=== PATIENT | male | born 1970 | race Caucasian/White ===

== ENCOUNTER 2020-02-19 15:58 | Inpatient (IN) ==
[2020-02-19] MEDS ORDERED: Cefepime HCl 2,000 MG in 0.9 % Sodium Chloride Mini Bag 100 ML IVPB ONE (16:51)
[2020-02-19] MEDS ORDERED: Vancomycin 2,000 MG/520 ML IV.SOLN IVPB ONE (16:52)
[2020-02-19] MEDS ORDERED: Isovue-370 500 ML BOTTLE IVP ONE ×2 (16:53→16:56)
[2020-02-19] MEDS ORDERED: MetroNIDAZOLE 500 MG/100 ML 500 MG/100 ML BAG IVPB ONE (16:53)
[2020-02-19] MEDS ORDERED: D5% in Water 0 ML ONE (17:05)
[2020-02-19 18:09] LABS: INR 1.3; Prothrombin Time 14.8 Seconds (9.4-12.1)
[2020-02-19 18:12] LABS: Activated Partial Thrombo Time 27.9 Seconds (26.0-36.0)
[2020-02-19 18:20] LABS: Basophils # 0.1 K/mcL (0.0-0.2); Basophils % 0.3 %; Eosinophils % 0.1 %; Hemoglobin 12.5 g/dL (12.9-16.9); Immature Granulocytes % 2.3 % (0-4); Lymphocytes # 1.4 K/mcL (0.6-4.6); Lymphocytes % 9.1 %; Mean Corpuscular HGB Conc 31.3 g/dL (31.6-35.5); Mean Corpuscular Hemoglobin 28.3 pg (28.0-33.3); Mean Corpuscular Volume 90.5 fL (83.0-100.0); Mean Platelet Volume 8.9 fL (9.4-12.4); Monocytes # 1.1 K/mcL (0.0-1.3); Monocytes % 6.7 %; Platelet Count 381 K/mcL (140-400); Red Blood Count 4.42 M/mcL (4.19-5.50); Red Cell Distribution Width 20.8 % (11.5-14.5); Segmented Neutrophils % 81.5 %; White Blood Count 15.9 K/mcL (4.3-11.1)
[2020-02-19 18:40] LABS: Alanine Aminotransferase 14 Units/L (7-52); Albumin 2.4 g/dL (3.5-5.7); Albumin/Globulin Ratio 0.5 (1.1-2.2); Alkaline Phosphatase 242 Units/L (34-104); Aspartate Amino Transferase 21 Units/L (13-39); BUN/Creatinine Ratio 26 (6-26); Bilirubin,Direct 0.2 mg/dL (0.0-0.2); Bilirubin,Indirect 0.4 mg/dL (0.0-1.0); Bilirubin,Total 0.6 mg/dL (0.3-1.0); Blood Urea Nitrogen 18 mg/dL (6-20); Calcium 7.8 mg/dL (8.6-10.3); Carbon Dioxide 26 mEq/L (23-29); Chloride 95 mEq/L (98-107); Globulin 4.5 g/dL (2.4-3.5); Glucose 112 mg/dL (70-105); Osmolality,Calculated 275 (280-300); Phosphorous 3.6 mg/dL (2.7-4.5); Potassium 3.4 mEq/L (3.5-5.1); Sodium 131 mEq/L (136-145); Total Protein 6.9 g/dL (6.4-8.9); Troponin I < 0.03 ng/mL (< 0.04); eGFR For African Americans > 60 (> 60); eGFR For Non-African Americans > 60 (> 60)
[2020-02-19] MEDS ORDERED: *HR* Heparin 5,000 UNIT/ML VIAL IVP ONE (20:03)
[2020-02-19] MEDS ORDERED: *HR* Heparin 5,000 UNIT/ML VIAL IVP PRN ×2 (20:03)
[2020-02-19] MEDS: Heparin 25,000UNIT/250ML 1/2NS 25,000 UNIT/250 ML IV.SOLN IVC SCH (21:39)
[2020-02-19 22:01] LABS: Hematocrit 34.1 % (37.5-50.1); Mean Corpuscular HGB Conc 31.7 g/dL (31.6-35.5); Mean Corpuscular Hemoglobin 28.3 pg (28.0-33.3); Mean Corpuscular Volume 89.5 fL (83.0-100.0); Mean Platelet Volume 8.5 fL (9.4-12.4); Platelet Count 335 K/mcL (140-400); Red Blood Count 3.81 M/mcL (4.19-5.50); Red Cell Distribution Width 20.7 % (11.5-14.5); White Blood Count 17.5 K/mcL (4.3-11.1)
[2020-02-19 22:04] LABS: Heparin anti-factor XA UFH < 0.04 IU/mL (0.30-0.70)
[2020-02-19 22:05] LABS: INR 1.3; Prothrombin Time 15.2 Seconds (9.4-12.1)
[2020-02-19 22:07] LABS: Hemoglobin 10.8 g/dL (12.9-16.9)
[2020-02-19 22:56] LABS: Adenovirus Not Detected (Not Detect); Bordetella Pertussis Not Detected (Not Detect); Chlamydophila pneumoniae Not Detected (Not Detect); Coronavirus 229E Not Detected (Not Detect); Coronavirus HKU1 Not Detected (Not Detect); Coronavirus NL63 Not Detected (Not Detect); Coronavirus OC43 Not Detected (Not Detect); Human Metapneumovirus Not Detected (Not Detect); Human Rhinovirus/Enterovirus Not Detected (Not Detect); Influenza A Subtype 2009 H1 Not Detected (Not Detect); Influenza B Not Detected (Not Detect); Mycoplasma pneumoniae Not Detected (Not Detect); Parainfluenza Virus 1 Not Detected (Not Detect); Parainfluenza Virus 2 Not Detected (Not Detect); Parainfluenza Virus 3 Not Detected (Not Detect); Parainfluenza Virus 4 Not Detected (Not Detect); Respiratory Syncytial Virus Not Detected (Not Detect); SARS-CoV-2 Not Detected (Not Detect)
[2020-02-20] MEDS ORDERED: Albumin 25% 25gram/100mL 25 GM/100 ML IV.SOLN IVPB ONE (00:25)
[2020-02-20] MEDS ORDERED: Acetaminophen 325 MG TABLET PO PRN (01:55)
[2020-02-20] MEDS ORDERED: Ondansetron 4 MG/2 ML VIAL IVP PRN (01:55)
[2020-02-20] MEDS ORDERED: Naloxone 0.4 MG/ML INJ IVP PRN (01:55)
[2020-02-20] MEDS ORDERED: *HR* Dextrose 50 % in Water (Vial) 50 ML VIAL IVP PRN ×2 (01:58→05:30)
[2020-02-20] MEDS ORDERED: D5% in Water 1,000 ML IVC PRN ×2 (01:58→05:30)
[2020-02-20] MEDS ORDERED: Dextrose Gel 15 GM/37.5 ML TUBE PO PRN ×4 (01:58→05:30)
[2020-02-20 05:52] LABS: Basophils % 0.1 %; Eosinophils % 0.1 %; Hematocrit 31.3 % (37.5-50.1); Immature Granulocytes % 2.4 % (0-4); Lymphocytes # 1.3 K/mcL (0.6-4.6); Lymphocytes % 9.4 %; Mean Corpuscular HGB Conc 31.9 g/dL (31.6-35.5); Mean Corpuscular Volume 90.7 fL (83.0-100.0); Mean Platelet Volume 8.7 fL (9.4-12.4); Monocytes # 1.2 K/mcL (0.0-1.3); Monocytes % 8.9 %; Neutrophils # 11.1 K/mcL (1.6-8.9); Platelet Count 246 K/mcL (140-400); Red Blood Count 3.45 M/mcL (4.19-5.50); Red Cell Distribution Width 20.5 % (11.5-14.5); Segmented Neutrophils % 79.1 %
[2020-02-20 05:54] LABS: Heparin anti-factor XA UFH 0.3 IU/mL (0.30-0.70); INR 1.4
[2020-02-20 06:17] LABS: BUN/Creatinine Ratio 30 (6-26); Blood Urea Nitrogen 18 mg/dL (6-20); Calcium 7.2 mg/dL (8.6-10.3); Carbon Dioxide 24 mEq/L (23-29); Chloride 99 mEq/L (98-107); Glucose 98 mg/dL (70-105); Magnesium 1.9 mg/dL (1.6-2.6); Osmolality,Calculated 274 (280-300); Potassium 3.6 mEq/L (3.5-5.1); Sodium 131 mEq/L (136-145); eGFR For African Americans > 60 (> 60); eGFR For Non-African Americans > 60 (> 60)
[2020-02-20] MEDS ORDERED: Insulin LISPRO 300 UNITS/3 ML VIAL SQ SCH ×2 (07:30→21:00)
[2020-02-20] MEDS: Insulin LISPRO 300 UNITS/3 ML VIAL SQ SCH ×4 (07:53→19:45)
[2020-02-20] MEDS ORDERED: Albumin 25% 25gram/100mL 25 GM/100 ML IV.SOLN IVPB SCH (08:00)
[2020-02-20] MEDS ORDERED: Piperacillin/Tazobactam 3.375 GM in 0.9 % Sodium Chloride Mini Bag 100 ML IVPB SCH (08:00)
[2020-02-20] MEDS ORDERED: cefTRIAXone 2,000 MG in 0.9 % Sodium Chloride 100 ML IVPB SCH (08:27)
[2020-02-20] MEDS ORDERED: Calcium Gluconate 1gm/50mL 1 GM/50 ML BAG IVPB SCH (08:30)
[2020-02-20] MEDS ORDERED: MetroNIDAZOLE 500 MG/100 ML 500 MG/100 ML BAG IVPB SCH (08:31)
[2020-02-20] MEDS ORDERED: Vancomycin 1,250 MG/262.5 ML IV.SOLN IVPB ONE (09:00)
[2020-02-20] MEDS: Ipratropium/Albuterol Neb 3 ML IH SCH ×3 (10:14→22:07)
[2020-02-20 11:59] LABS: Albumin 2.4 g/dL (3.5-5.7); Albumin/Globulin Ratio 0.6 (1.1-2.2); Bilirubin,Direct 0.2 mg/dL (0.0-0.2); Bilirubin,Indirect 0.4 mg/dL (0.0-1.0); Bilirubin,Total 0.6 mg/dL (0.3-1.0); Globulin 3.8 g/dL (2.4-3.5); Total Protein 6.2 g/dL (6.4-8.9)
[2020-02-20 12:09] LABS: Folate 4.5 ng/mL (3.0-16.0)
[2020-02-20 12:20] LABS: Vitamin B12 > 1500 pg/mL (250-1100)
[2020-02-20] MEDS: Multivit/Ca/Min/Fe/FA 1 TAB TABLET PO SCH (12:38)
[2020-02-20] MEDS: Lactobacillus 1 EACH CAP.SPRINK PO SCH ×2 (12:38→23:29)
[2020-02-20] MEDS: cefTRIAXone 2,000 MG in 0.9 % Sodium Chloride 100 ML IVPB SCH (12:54)
[2020-02-20] MEDS: Vancomycin 1,250 MG/262.5 ML IV.SOLN IVPB SCH (13:31)
[2020-02-20 15:45] LABS: RBC,Peritoneal Fluid < 2000 RBC/mcL
[2020-02-20] MEDS: *HR* OxyCODONE/APAP 5/325 TABLET PO PRN ×2 (15:56→23:29)
[2020-02-20 15:57] LABS: Amylase,Peritoneal Fluid < 10 Units/L (No Ref Range); Glucose,Peritoneal Fluid 95 mg/dL (No Ref Range); LDH,Peritoneal Fluid 106 Units/L (No Ref Range); Total Protein,Peritoneal Fluid 2.2 g/dL
[2020-02-20] MEDS: Albumin 25% 25gram/100mL 25 GM/100 ML IV.SOLN IVPB SCH ×2 (16:52→23:31)
[2020-02-20] MEDS: Heparin 25,000UNIT/250ML 1/2NS 25,000 UNIT/250 ML IV.SOLN IVC SCH (16:53)
[2020-02-20 16:56] LABS: Appearance of Peritoneal Fl CLEAR (Clear)
[2020-02-20 20:30] LABS: Bacteria,Urine Moderate per hpf (None-Few); Bilirubin,Urine Negative (Negative); Blood,Urine Negative (Negative); Clarity,Urine Clear (Clear); Color,Urine Yellow (Yellow); Glucose,Urine (UA) Normal (Normal); Ketones,Urine Trace mg/dL (Negative); Leukocyte Esterase,Urine Negative (Negative); Mucus,Urine Few per lpf (None-Few); Nitrite,Urine Negative (Negative); Protein,Urine 30 mg/dL (Neg-Trace); RBC,Urine 0-3 per hpf (0-3); Specific Gravity,Urine > 1.030 (1.010-1.025); Squamous Epithelial Cell,Urine Few per hpf (None-Few)
[2020-02-21 02:41] LABS: Basophils % 0.1 %; Eosinophils % 0.1 %; Hematocrit 29.4 % (37.5-50.1); Hemoglobin 9.1 g/dL (12.9-16.9); Immature Granulocytes % 1.4 % (0-4); Lymphocytes # 1.2 K/mcL (0.6-4.6); Lymphocytes % 8.9 %; Mean Corpuscular Hemoglobin 28.2 pg (28.0-33.3); Monocytes % 7.5 %; Platelet Count 208 K/mcL (140-400); Red Blood Count 3.23 M/mcL (4.19-5.50); Red Cell Distribution Width 20.2 % (11.5-14.5); White Blood Count 13.4 K/mcL (4.3-11.1)
[2020-02-21 02:50] LABS: Alanine Aminotransferase 8 Units/L (7-52); Albumin 2.4 g/dL (3.5-5.7); Albumin/Globulin Ratio 0.9 (1.1-2.2); Alkaline Phosphatase 123 Units/L (34-104); Aspartate Amino Transferase 14 Units/L (13-39); BUN/Creatinine Ratio 27 (6-26); Bilirubin,Total 0.5 mg/dL (0.3-1.0); Blood Urea Nitrogen 17 mg/dL (6-20); Calcium 7.2 mg/dL (8.6-10.3); Carbon Dioxide 25 mEq/L (23-29); Chloride 99 mEq/L (98-107); Globulin 2.6 g/dL (2.4-3.5); Glucose 92 mg/dL (70-105); Magnesium 1.8 mg/dL (1.6-2.6); Osmolality,Calculated 275 (280-300); Phosphorous 2.7 mg/dL (2.7-4.5); Potassium 3.2 mEq/L (3.5-5.1); Sodium 132 mEq/L (136-145); eGFR For African Americans > 60 (> 60); eGFR For Non-African Americans > 60 (> 60)
[2020-02-21] MEDS: Ipratropium/Albuterol Neb 3 ML IH SCH ×4 (03:53→21:54)
[2020-02-21] MEDS: *HR* OxyCODONE/APAP 5/325 TABLET PO PRN ×2 (04:36→20:46)
[2020-02-21] MEDS: Simethicone 80 MG TAB.CHEW PO PRN ×3 (06:05→20:46)
[2020-02-21 08:33] LABS: Estimated Average Glucose 137 mg/dl; Hemoglobin A1C 6.4 %
[2020-02-21] MEDS ORDERED: cefTRIAXone 2,000 MG in 0.9 % Sodium Chloride 100 ML IVPB SCH (09:00)
[2020-02-21] MEDS: Insulin LISPRO 300 UNITS/3 ML VIAL SQ SCH ×4 (09:29→20:46)
[2020-02-21] MEDS: Multivit/Ca/Min/Fe/FA 1 TAB TABLET PO SCH (09:31)
[2020-02-21] MEDS: Folic Acid 1 MG TABLET PO SCH (09:31)
[2020-02-21] MEDS: Lactobacillus 1 EACH CAP.SPRINK PO SCH ×2 (09:31→20:46)
[2020-02-21] MEDS: cefTRIAXone 2,000 MG in 0.9 % Sodium Chloride 100 ML IVPB SCH (09:33)
[2020-02-21] MEDS: Albumin 25% 25gram/100mL 25 GM/100 ML IV.SOLN IVPB SCH ×2 (09:37→17:25)
[2020-02-21] MEDS: Heparin 25,000UNIT/250ML 1/2NS 25,000 UNIT/250 ML IV.SOLN IVC SCH (10:47)
[2020-02-21] MEDS: Vancomycin 1,250 MG/262.5 ML IV.SOLN IVPB SCH ×2 (12:05→20:46)
[2020-02-21] MEDS ORDERED: Potassium Chloride 40 MEQ, Lidocaine 1% 2 ML in 0.9 % Sodium Chloride 500 ML IVPB ONE (13:09)
[2020-02-21] MEDS ORDERED: Simethicone 80 MG TAB.CHEW PO PRN (13:15)
[2020-02-21] MEDS ORDERED: Nicotine 2 MG GUM BC PRN (16:07)
[2020-02-22] MEDS: Albumin 25% 25gram/100mL 25 GM/100 ML IV.SOLN IVPB SCH (01:30)
[2020-02-22] MEDS: Heparin 25,000UNIT/250ML 1/2NS 25,000 UNIT/250 ML IV.SOLN IVC SCH ×2 (02:17→23:52)
[2020-02-22 03:43] LABS: Alanine Aminotransferase 7 Units/L (7-52); Albumin 2.4 g/dL (3.5-5.7); Alkaline Phosphatase 107 Units/L (34-104); Aspartate Amino Transferase 13 Units/L (13-39); BUN/Creatinine Ratio 26 (6-26); Bilirubin,Total 0.4 mg/dL (0.3-1.0); Blood Urea Nitrogen 13 mg/dL (6-20); Calcium 7.2 mg/dL (8.6-10.3); Carbon Dioxide 25 mEq/L (23-29); Chloride 103 mEq/L (98-107); Globulin 2.4 g/dL (2.4-3.5); Glucose 131 mg/dL (70-105); Magnesium 1.7 mg/dL (1.6-2.6); Osmolality,Calculated 278 (280-300); Phosphorous 1.8 mg/dL (2.7-4.5); Potassium 3.5 mEq/L (3.5-5.1); Sodium 133 mEq/L (136-145); Total Protein 4.8 g/dL (6.4-8.9); eGFR For African Americans > 60 (> 60); eGFR For Non-African Americans > 60 (> 60)
[2020-02-22] MEDS: *HR* OxyCODONE/APAP 5/325 TABLET PO PRN ×2 (03:56→08:31)
[2020-02-22] MEDS: Ipratropium/Albuterol Neb 3 ML IH SCH (04:03)
[2020-02-22 04:05] LABS: Basophils % 0.1 %; Eosinophils % 0.2 %; Hematocrit 28.8 % (37.5-50.1); Hemoglobin 9.1 g/dL (12.9-16.9); Immature Granulocytes % 1.1 % (0-4); Lymphocytes # 0.9 K/mcL (0.6-4.6); Lymphocytes % 7.4 %; Mean Corpuscular HGB Conc 31.6 g/dL (31.6-35.5); Mean Corpuscular Hemoglobin 29.1 pg (28.0-33.3); Mean Platelet Volume 9.2 fL (9.4-12.4); Monocytes # 0.9 K/mcL (0.0-1.3); Neutrophils # 9.7 K/mcL (1.6-8.9); Platelet Count 190 K/mcL (140-400); Red Blood Count 3.13 M/mcL (4.19-5.50); Red Cell Distribution Width 20.1 % (11.5-14.5); Segmented Neutrophils % 83.2 %; White Blood Count 11.7 K/mcL (4.3-11.1)
[2020-02-22] MEDS ORDERED: Ipratropium/Albuterol Neb 3 ML IH PRN (04:16)
[2020-02-22] MEDS: Insulin LISPRO 300 UNITS/3 ML VIAL SQ SCH ×3 (07:49→19:22)
[2020-02-22] MEDS: cefTRIAXone 2,000 MG in 0.9 % Sodium Chloride 100 ML IVPB SCH (08:31)
[2020-02-22] MEDS: Multivit/Ca/Min/Fe/FA 1 TAB TABLET PO SCH (08:32)
[2020-02-22] MEDS: Folic Acid 1 MG TABLET PO SCH (08:32)
[2020-02-22] MEDS: Lactobacillus 1 EACH CAP.SPRINK PO SCH ×2 (08:33→19:54)
[2020-02-22] MEDS: Vancomycin 1,250 MG/262.5 ML IV.SOLN IVPB SCH (08:33)
[2020-02-23] MEDS: Insulin LISPRO 300 UNITS/3 ML VIAL SQ SCH ×2 (00:03→09:02)
[2020-02-23 01:59] LABS: Fluid Source for Albumin ASCITES
[2020-02-23] MEDS ORDERED: Albumin 25% 25gram/100mL 25 GM/100 ML IV.SOLN IVPB ONE (06:18)
[2020-02-23] MEDS ORDERED: 0.9 % Sodium Chloride 250 ML IV ONE (06:20)
[2020-02-23 07:24] VITALS: BP 82/55
[2020-02-23] MEDS ORDERED: Apixaban 5 MG TABLET PO SCH (09:00)
[2020-02-23] MEDS: Folic Acid 1 MG TABLET PO SCH (09:05)
[2020-02-23] MEDS: Lactobacillus 1 EACH CAP.SPRINK PO SCH (09:05)
[2020-02-23] MEDS: Multivit/Ca/Min/Fe/FA 1 TAB TABLET PO SCH (09:05)
[2020-02-23] MEDS: cefTRIAXone 2,000 MG in 0.9 % Sodium Chloride 100 ML IVPB SCH (09:06)
[2020-03-01] MEDS ORDERED: Apixaban 5 MG TABLET PO SCH (09:00)
== END 2020-02-23 10:09 | disposition hospice, home (50) | DRG 720 ==
LOC: EMEROOARM 15:58 → 2ANU 15:58 → 2NNU 15:58 → SUATTDRO 23:54 → 2NNU 02-20 00:55 → SUATTDRO 02-21 18:16
PROVIDERS: ADMIT Pharmacist; ATTEND General Practice